=== PATIENT | female | born 1995 | race Caucasian/White ===

== ENCOUNTER 2018-08-05 23:29 | Emergency (ER) | payer MEDICAID, OTHER ==
[~2018-08-05] VITALS: Ht 157.5 cm; Wt 47.0 kg
[2018-08-05 23:37] VITALS: Ht 157.5 cm; Wt 47.0 kg
--- NOTE | 2018-08-06 01:26 | ERD ---
ER Documentation Chief Complaint Chief Complaint vaginal spotting x 1 hour, states 6 weeks . denies abd pain HPI 23-year-old female noticed a small spot of blood from her vagina today. She is approximately 6 weeks by dates. She has minimal cramping. She has fevers, vomiting. She is receiving care. She is a G1 para 0. ROS All systems reviewed and are negative except as per history of present illness. Allergies Allergies: Coded Allergies: No Known Drug Allergies (Verified Allergy, Unknown, 08/05/18) PMhx/Soc Medical and Surgical Hx: pt denies Medical Hx, pt denies Surgical Hx Hx Alcohol Use: No Hx Substance Use: No Hx Tobacco Use: No Smoking Status: Never smoker Physical Exam Vitals Vital Signs Date Temp Pulse Resp B/P (MAP) Pulse Ox O2 O2 Flow FiO2 Time Delivery Rate 08/05/18 97.3 77 18 120/71 97 23:37 (87) Physical Exam Const: No acute distress Head: Atraumatic Eyes: Normal Conjunctiva ENT: Normal External Ears, Nose and Mouth. Neck: Full range of motion. No meningismus. Resp: Clear to auscultation bilaterally Cardio: Regular rate and rhythm, no murmurs Abd: Soft, non tender, non distended. Normal bowel sounds Skin: No petechiae or rashes Back: No midline or flank tenderness Ext: No cyanosis, or edema Neur: Awake and alert Psych: Normal Mood and Affect Result Diagram: 08/06/18 0002 Results 24 hrs Laboratory Tests Test 08/06/18 00:02 08/06/18 00:03 08/06/18 00:21 White Blood Count 7.5 10^3/ul Red Blood Count 4.24 10^6/ul Hemoglobin 12.0 g/dl Hematocrit 36.7 % Mean Corpuscular Volume 86.6 fl Mean Corpuscular Hemoglobin 28.3 pg Mean Corpuscular 32.7 g/dl Hemoglobin Concent Red Cell Distribution Width 12.8 % Platelet Count 235 10^3/UL Mean Platelet Volume 9.5 fl Immature Granulocytes % 0.300 % Neutrophils % 59.3 % Lymphocytes % 29.0 % Monocytes % 9.4 % Eosinophils % 1.6 % Basophils % 0.4 % Nucleated Red Blood Cells % 0.0 /100WBC Immature Granulocytes # 0.020 10^3/ul Neutrophils # 4.4 10^3/ul Lymphocytes # 2.2 10^3/ul Monocytes # 0.7 10^3/ul Eosinophils # 0.1 10^3/ul Basophils # 0.0 10^3/ul Nucleated Red Blood Cells # 0.0 10^3/ul Beta HCG, Quantitative 57459.0 mIU/ml Urine Color YELLOW Urine Clarity SLIGHTLY CLOUDY Urine pH 6.0 Urine Specific [place] 1.013 Urine Ketones TRACE mg/dL Urine Nitrite NEGATIVE mg/dL Urine Bilirubin NEGATIVE mg/dL Urine Urobilinogen NEGATIVE mg/dL Urine Leukocyte Esterase NEGATIVE [place]/ul Urine Microscopic RBC 1 /HPF Urine Microscopic WBC 1 /HPF Urine Squamous Epithelial Cells FEW /HPF Urine Mucus FEW /HPF Urine Hemoglobin NEGATIVE mg/dL Urine Glucose NEGATIVE mg/dL Urine Total Protein NEGATIVE mg/dl POC Beta HCG, Qualitative POSITIVE Procedures/MDM pROCEDURE: US OB. CLINICAL INDICATION: , vaginal bleeding. TECHNIQUE: Multiple sonographic images of the pelvis were obtained. Transabdominal and transvaginal views of the pelvis are available for review. The images were reviewed on a PACS workstation. COMPARISON: No prior studies are available for comparison. FINDINGS: There is a single intrauterine . The mean gestational sac diameter measures 0.18 cm, corresponding to a 2-qzfo-6-day . The crown-rump length equals 0.31 cm which corresponds to a 9-yfqe-6-day gestational age by ultrasound criteria. cardiac activity could not be identified. No subchorionic hemorrhage is identified. The right ovary measures 3.2 x 1.6 x 1.9 cm. There is a nonspecific thick-walled cystic structure in the right ovary measuring 2.1 cm. The left ovary measures 3.4 x 1.9 x 2.3 cm. There is a 1.6 cm simple left ovarian cyst. Blood flow is demonstrated to both ovaries. There is a small volume of free fluid in the right adnexa. IMPRESSION: Single intrauterine gestation of approximately 5 weeks 6 days. cardiac could not be identified, possibly due to early dates. Continued follow-up is r ecommended. The estimated delivery is 04/02/2019. Nonspecific thick-walled cystic structure the right ovary measuring 2.1 cm. Attention on follow-up. 1.6 cm simple left ovarian cyst. Small volume of free fluid in the right adnexa. RPTAT: HTAR .Boogie Castrejon MD, MD Date Time Electronically viewed and signed by .Boogie Castrejon MD, MD on 08/06/2018 01:22 Patient is Rh+. Quantitative hCG 13,400. Patient presents with vaginal spotting today. Unable to visualize heart tones on ultrasound. Differential includes early normal versus threatened . Ectopic still consideration although less likely given visible pole. Patient was discharged home with recommendations for a 48- hour recheck of hormones or with OB. She should return sooner for pain, worsening bleeding, fevers, new worsening symptoms. Current signs or symptoms do not suggest appendicitis, additional causes of abdominal pain. The patient was stable with no new complaints during the ER course. Clinically, there is no current evidence to suggest meningitis, sepsis, acute abdomen, pneumonia, stroke, acute coronary syndrome, pulmonary embolism, aortic dissection or any other emergent condition appearing to require further evaluation or hospitalization. Patient counseled regarding my diagnostic impression and care plan. Prior to discharge all questions answered. Pt agrees with treatment plan and understands strict return precautions. Pt is instructed to follow up with primary care provider within 24-48 hours. Precautionary instructions provided including instructions to return to the ER if not improving or for any worsening or changing symptoms or concerns. Departure Diagnosis: Primary Impression: Vaginal bleeding in patient at less than 20 weeks ges... Condition: Stable Patient Instructions: Bleeding During Early Additional Instructions: Recommend recheck ultrasound shows early although cannot see heart tones. May be early normal versus possible early miscarriage. Sooner for fevers, worsening bleeding, new or worsening symptoms. REGINE YUNG MD Aug 06, 2018 01:26
[2018-08-06 01:35] VITALS: BP 113/73; PULSE 76; RESP 17
== END 2018-08-06 01:35 | disposition home or self-care (01) ==
LOC: FTE 23:29
DX: O20.9 Hemorrhage in early pregnancy, unspecified (principal); Z3A.01 Less than 8 weeks gestation of pregnancy
CPT/HCPCS: 36415; 76801; 76817; 81001; 81025; 84702; 85025; 86900; 86901; Z7502; 81003

== ENCOUNTER 2018-08-20 15:23 | Emergency (ER) | payer MEDICAID ==
[~2018-08-20] VITALS: Wt 47.3 kg
--- NOTE | 2018-08-20 16:24 | ERD ---
ER Documentation Chief Complaint Chief Complaint 6 WEEKS WITH SPOTTING HPI 23-year-old female, G1, P0 by LMP 06/17/2018, presents to the emergency department, complaining of 1 day with vaginal spotting. The patient denies abd ominal pain, no fever, no chills, no vaginal discharge. The patient has established care at [facility]. ROS All systems reviewed and are negative except as per history of present illness. Allergies Allergies: Coded Allergies: No Known Drug Allergies (Verified Allergy, Unknown, 08/05/18) PMhx/Soc Medical and Surgical Hx: pt denies Medical Hx, pt denies Surgical Hx Hx Alcohol Use: No Hx Substance Use: No Hx Tobacco Use: No FmHx Family History: No diabetes, No coronary disease Physical Exam Vitals Vital Signs Date Temp Pulse Resp B/P (MAP) Pulse Ox O2 O2 Flow FiO2 Time Delivery Rate 08/20/18 97.8 67 18 119/57 99 15:34 (77) Physical Exam Const: No acute distress Head: Atraumatic Eyes: Normal Conjunctiva ENT: Normal External Ears, Nose and Mouth. Neck: Full range of motion. No meningismus. Resp: Clear to auscultation bilaterally Cardio: Regular rate and rhythm, no murmurs Abd: Soft, non tender, non distended. Normal bowel sounds Skin: No petechiae or rashes Back: No midline or flank tenderness Ext: No cyanosis, or edema Neur: Awake and alert Psych: Normal Mood and Affect Result Diagram: 08/20/18 1641 Results 24 hrs Laboratory Tests Test 08/20/18 16:41 White Blood Count 9.5 10^3/ul Red Blood Count 4.53 10^6/ul Hemoglobin 12.9 g/dl Hematocrit 39.7 % Mean Corpuscular Volume 87.6 fl Mean Corpuscular Hemoglobin 28.5 pg Mean Corpuscular Hemoglobin Concent 32.5 g/dl Red Cell Distribution Width 13.0 % Platelet Count 235 10^3/UL Mean Platelet Volume 10.4 fl Immature Granulocytes % 0.300 % Neutrophils % 75.6 % Lymphocytes % 14.8 % Monocytes % 8.1 % Eosinophils % 0.7 % Basophils % 0.5 % Nucleated Red Blood Cells % 0.0 /100WBC Immature Granulocytes # 0.030 10^3/ul Neutrophils # 7.2 10^3/ul Lymphocytes # 1.4 10^3/ul Monocytes # 0.8 10^3/ul Eosinophils # 0.1 10^3/ul Basophils # 0.1 10^3/ul Nucleated Red Blood Cells # 0.0 10^3/ul Urine Color RED Urine Clarity CLOUDY Urine pH 6.0 Urine Specific [place] 1.008 Urine Ketones NEGATIVE mg/dL Urine Nitrite NEGATIVE mg/dL Urine Bilirubin NEGATIVE mg/dL Urine Urobilinogen NEGATIVE mg/dL Urine Leukocyte Esterase TRACE [place]/ul Urine Microscopic RBC 2 /HPF Urine Microscopic WBC 6 /HPF Urine Squamous Epithelial Cells FEW /HPF Urine Mucus FEW /HPF Urine Hemoglobin 3+ mg/dL Urine Glucose NEGATIVE mg/dL Urine Total Protein 1+ mg/dl Beta HCG, Quantitative 47269.0 mIU/ml Patient: MARGA BOLES : 1995 Age: 23 Sex: F MR #: [id number] DOS: 08/20/18 1621 Ordering MD: AMBREEN HOLMAN MD Location: [facility] Room/Bed: PROCEDURE: US OB. CLINICAL INDICATION: Vaginal bleeding. TECHNIQUE: Transabdominal and transvaginal sonographic evaluation of the uterus was performed. COMPARISON: US PELVIS 08/06/2018. FINDINGS: Uterus is anteverted and measures 7.8 x 4.3 x 5.6 cm. There is an intrauterine gestation containing pole and yolk sac. Mean sac diameter measures 15.3 mm. Hamlet rump length measures 2.3 mm. Estimated gestational age based on this examination is 6 weeks +/- 3 days. Real time examination does not demonstrate cardiac activity. Estimated date of confinement based on this examination is 04/15/2019. Right ovary measures 3.8 x 2.3 x 3 cm. Left ovary measures 3.7 x 2.2 x 1.7 cm. T here is a 2 x 2.1 x 1.5 cm thick wall cystic lesion in the right ovary. There is a 1.6 cm left ovarian cyst. There is no free pelvic fluid. IMPRESSION: 1. Intrauterine gestation with estimated gestational age of 6 weeks +/- 3 days. Persistent absent cardiac activity, compatible with failed intrauterine and demise. Recommend correlation with beta HCG levels. 2. Thick-walled cystic lesion in the right ovary, not significantly changed and nonspecific. Recommend attention on short-term follow-up sonogram. Procedures/MDM Vital signs stable, Physical exam unremarkable. Differential diagnosis include but not limited to: UTI, threatening , incomplete versus complete , ectopic , physiologic implantation bleeding, molar . Physical examination and clinical presentation most likely consistent with missed . During the ED course the patient remained hemodynamically stable and asymptomatic. Results and clinical impression discussed with patient who agrees with management. The patient is stable to be treated outpatient and will be discharged home with close monitoring and follow-up in 2 days with her primary physician. Bed rest and pelvic rest recommended until further medical evaluation. The patient was instructed regarding the outcomes and the potential complications like severe bleeding and . If the patient presents severe bleeding or pain, she was instructed to return to the hospital immediately. Disclaimer: Inadvertent spelling and grammatical errors are likely due to EHR/dictation software use and do not reflect on the overall quality of patient care. Also, please note that the electronic time recorded on this note does not necessarily reflect the actual time of the patient encounter. Departure Diagnosis: Primary Impression: Missed Condition: Stable Additional Instructions: Thank you very much for allowing us to participate in your care. Your health and safety is our top priority at [facility]. The evaluation in the emergency department has been done to rule out an acute emergency, therefore, chronic conditions like malignancy or other diseases have not been evaluated; therefore, you need to follow up with a primary care provid er in the next 48h. If symptoms persist, worsen or new symptoms develop, then patient should return to the ED immediately. Call your primary care doctor TOMORROW for an appointment during the next 2-4 days and bring all the information provided. Have prescriptions filled and follow precisely the directions on the label. If the symptoms get worse and your provider is unavailable, return to the Emergency Department immediately. AMBREEN HOLMAN MD August 20, 2018 16:24
[2018-08-20] MEDS ORDERED: ACET325T33 PO (18:40)
[2018-08-20 19:11] VITALS: BP 111/57; PULSE 81; RESP 18
== END 2018-08-20 19:12 | disposition home or self-care (01) ==
LOC: FTE 15:23
DX: O02.1 Missed abortion (principal)
CPT/HCPCS: 36415; 76801; 76817; 81001; 84702; 85025; Z7502